=== PATIENT | male | born 1995 | race Caucasian/White ===

== ENCOUNTER → 2022-07-15 | Outpatient (CLI) | payer BC, SELFPAY ==
--- NOTE | 2022-07-15 07:57 | MRI_ITS ---
STUDY: MRI LEFT KNEE REASON FOR EXAM: Male, 27 years old. ACL deficiency versus medial meniscal tear. Pain. Status post ACL reconstruction. TECHNIQUE: Standardized fat and water weighted pulse sequences were obtained in all 3 orthogonal planes. COMPARISON: X-rays of the knee dated 07/04/2022 showing changes of ACL reconstruction. FINDINGS: Blunting of the posterior horn of the medial meniscus, likely from partial meniscectomy. Undersurface oblique tear of the body of the medial meniscus (sagittal series 5 image 11, coronal series 7 image 12). Mild thinning of the articular cartilage of the medial femorotibial compartment (coronal series 7 images 10-17). Normal medial femoral condyle and tibial plateau. Normal medial collateral ligamentous complex (MCL). Normal distal semimembranosus, gracilis and semitendinosus tendons. Normal lateral meniscus. Normal hyaline cartilage of the lateral femorotibial compartment. Normal lateral femoral condyle and tibial plateau. Normal proximal tibiofibular articulation. Normal lateral collateral (fibular) ligament. Normal popliteus tendon. Normal biceps femoris tendon. ACL reconstruction with slight increased signal intensity which may represent synovial observation. No tear identified (sagittal series 4 images 20-27, coronal series 7 images 9-15, oblique coronal series 8 images 8-17). Normal posterior cruciate ligament (PCL). Slight lateral tilt of the patella (axial series 3 image 8). Normal hyaline cartilage of the patellofemoral compartment. Normal medial and lateral patellar retinaculum. Normal quadriceps tendon. Normal patellar tendon. Normal Hoffa''s fat pad. Small joint effusion (axial series 3 image 8). The soft tissues are unremarkable. The otherwise visualized osseous structures are unremarkable. MRI/Lower Ext Joint Only (Routine) IMPRESSION: Blunting of the posterior horn of the medial meniscus, likely from partial meniscectomy. Undersurface oblique tear of the body of the medial meniscus. Mild thinning of the articular cartilage of the medial femorotibial compartment. ACL graft with slight increased signal intensity without a focal tear. Slight lateral tilt of the patella. Small joint effusion. No other abnormality present. Electronically Signed: James Luevano, at 10:07 EDT ,
== END | disposition home or self-care (01) ==
LOC: MRI 07:57
PROVIDERS: Visit Provider Orthopaedic Surgery Sports Medicine
DX: S83.512A Sprain of anterior cruciate ligament of left knee, initial encounter (principal)
CPT/HCPCS: 73721